=== PATIENT | male | born 1995 | race Caucasian/White ===

== ENCOUNTER 2019-06-12 12:41 | Inpatient (IN) | payer OTHER ==
[~2019-06-12] VITALS: Ht 177.8 cm; Wt 70.3 kg
--- NOTE | 2019-06-12 14:00 | NUR ---
[facility] 126 AT BEDSIDE AT THIS TIME.
--- NOTE | 2019-06-12 14:06 | NUR ---
According to the suicide assessment screen the patient scores low for suicide and does not require a 1:1 assessment. A suicide resource flyer was provided for the patient.
[2019-06-12 15:13] LABS: CALC OSMOLALITY 268 mosm/kg (275-300); CALCIUM 8.4 mg/dL (8.5-10.1); CHLORIDE - SERUM 97 mmol/L (98-107); GLUCOSE 133 mg/dL (74-106); POTASSIUM - SERUM 3.3 mmol/L (3.5-5.1); SODIUM 134 mmol/L (136-145); UREA NITROGEN 9 mg/dL (7-18); eGFR NON AFRICAN AMERICAN > 90 mL/min (90-120)
--- NOTE | 2019-06-12 15:17 | NUR ---
RETURNED FROM CT SCAN AT THIS TIME VIA STRETCHER.
[2019-06-12 15:19] LABS: ALBUMIN 2.9 g/dL (3.4-5.0); ALKALINE PHOSPHATASE 63 U/L (46-116); ALT (SGPT) 31 U/L (10-68); BILIRUBIN - TOTAL 0.86 mg/dL (0.2-1.3); HEMATOCRIT 31.7 % (42.0-54.0); HEMOGLOBIN 11.2 g/dL (13.5-17.5); MAGNESIUM - SERUM 2.2 mg/dL (1.8-2.4); MCH 30.6 pg (26.0-34.0); MCHC 35.3 g/dL (31.0-37.0); MCV 86.6 fL (80.0-100.0); MEAN PLATELET VOLUME 8.8 fL (7.4-10.4); PLATELET COUNT 319 10x3/uL (130-400); PROTEIN - SERUM 7.2 g/dL (6.4-8.2); RBC 3.66 10x6/uL (4.20-6.10); RDW 12.5 % (11.5-14.5); WBC 20.6 10x3/uL (4.8-10.8)
[2019-06-12 15:31] LABS: LYMPHOCYTES 14 % (15-50); NEUTROPHILS 78 % (40-80)
[2019-06-12 15:56] LABS: APPEARANCE CLEAR (CLEAR); BILIRUBIN NEGATIVE (NEGATIVE); COLOR YELLOW (YELLOW); GLUCOSE NEGATIVE (NEGATIVE); KETONE NEGATIVE (NEGATIVE); NITRITE NEGATIVE (NEGATIVE); PROTEIN NEGATIVE (NEGATIVE); SPECIFIC GRAVITY 1.015 (1.005-1.020)
[2019-06-12 16:01] LABS: UDS - AMPHET NEGATIVE QUAL (NEGATIVE); UDS - BARB NEGATIVE QUAL (NEGATIVE); UDS - BENZO NEGATIVE QUAL (NEGATIVE); UDS - COCAINE NEGATIVE QUAL (NEGATIVE); UDS - OPIATE NEGATIVE QUAL (NEGATIVE); UDS - PCP NEGATIVE QUAL (NEGATIVE); UDS - THC NEGATIVE QUAL (NEGATIVE)
[2019-06-12 16:52] LABS: CREATINE KINASE 608 UL (21-232)
[2019-06-12 16:59] LABS: CKMB 1.7 U/L (0.0-3.6)
[2019-06-12 17:09] LABS: PLATELET ESTIMATE NORMAL
[2019-06-12 18:12] LABS: APTT 38.2 SECONDS (22.8-39.4)
[2019-06-12 18:13] LABS: INR 1.19 (0.85-1.17); PROTIME 15.1 SECONDS (11.6-15.0)
[2019-06-12 18:27] VITALS: BP 116/74; BMI 22.2
[2019-06-12 20:00] VITALS: BP 120/55
[2019-06-13] VITALS: BP 122/60
[2019-06-13 04:00] VITALS: BP 118/60
[2019-06-13 07:13] LABS: BASOPHILS 0.1 % (0-2); EOSINOPHILS 0.4 % (0-7); HEMATOCRIT 28.1 % (42.0-54.0); HEMOGLOBIN 9.5 g/dL (13.5-17.5); IMMATURE GRANULOCYTES 0.4 % (0-5); LYMPHOCYTES 14.1 % (15-50); MCH 29.7 pg (26.0-34.0); MCHC 33.8 g/dL (31.0-37.0); MCV 87.8 fL (80.0-100.0); MEAN PLATELET VOLUME 8.4 fL (7.4-10.4); MONOCYTES 8.7 % (2-11); NEUTROPHILS 76.3 % (40-80); PLATELET COUNT 324 10x3/uL (130-400)
[2019-06-13 07:22] LABS: WBC 13.4 10x3/uL (4.8-10.8)
[2019-06-13 08:00] VITALS: BP 108/51
--- NOTE | 2019-06-13 08:00 | NUR ---
ALERT AND ORIENTED X4 WITH GENERALIZED ABRAISIONS AND BRUISING NOTED. ERYTHEMA AND WARMTH NOTED TO LLE WITH PERIPERAL PULSES NOTED AND 1+ EDEMA TO LLE. ENCOURAGED TO USE CALL LIGHT FOR ASSIST.
[2019-06-13 08:06] LABS: ALBUMIN 2.2 g/dL (3.4-5.0); ALKALINE PHOSPHATASE 46 U/L (46-116); BILIRUBIN - TOTAL 0.67 mg/dL (0.2-1.3); CALCIUM 7.5 mg/dL (8.5-10.1); CHLORIDE - SERUM 104 mmol/L (98-107); CREATININE - SERUM 0.9 mg/dL (0.6-1.3); GLUCOSE 100 mg/dL (74-106); MAGNESIUM - SERUM 2.1 mg/dL (1.8-2.4); POTASSIUM - SERUM 3.4 mmol/L (3.5-5.1); SODIUM 138 mmol/L (136-145); eGFR NON AFRICAN AMERICAN > 90 mL/min (90-120)
[2019-06-13 08:07] LABS: ALT (SGPT) 23 U/L (10-68); CALC OSMOLALITY 272 mosm/kg (275-300); UREA NITROGEN 5 mg/dL (7-18)
[2019-06-13 15:55] VITALS: BP 125/66
--- NOTE | 2019-06-13 19:41 | NUR ---
PATIENT RESTING IN BED ON PHONE. PATIENT DENIES NEEDS AT THIS TIME. BED IN LOWEST POSITION AND CALL LIGHT WITHIN REACH. ENCOURAGED THE PATIENT TO CALL IF HE HAS NEEDS. WILL CONTINUE TO MONITOR.
[2019-06-13 20:32] VITALS: BP 110/58
--- NOTE | 2019-06-13 22:15 | NUR ---
PATIENT SITTING UP IN BED LOOKING AT PHONE. PATIENT DENIES NEEDS AT THIS TIME.
--- NOTE | 2019-06-13 22:21 | NUR ---
BROUGHT PATIENT A SNACK PER HIS REQUEST. PATIENT DENIES OTHER NEEDS AT THIS TIME.
[2019-06-14 00:23] VITALS: BP 110/62
[2019-06-14 04:00] VITALS: BP 102/49
[2019-06-14 06:46] LABS: BASOPHILS 0.3 % (0-2); EOSINOPHILS 1.9 % (0-7); HEMATOCRIT 29.4 % (42.0-54.0); HEMOGLOBIN 9.5 g/dL (13.5-17.5); IMMATURE GRANULOCYTES 0.7 % (0-5); LYMPHOCYTES 17.1 % (15-50); MCH 29.1 pg (26.0-34.0); MCHC 32.3 g/dL (31.0-37.0); MEAN PLATELET VOLUME 8.4 fL (7.4-10.4); MONOCYTES 7.1 % (2-11); NEUTROPHILS 72.9 % (40-80); PLATELET COUNT 355 10x3/uL (130-400); RBC 3.27 10x6/uL (4.20-6.10); RDW 13.4 % (11.5-14.5); WBC 10.3 10x3/uL (4.8-10.8)
[2019-06-14 06:48] LABS: MCV 89.9 fL (80.0-100.0)
[2019-06-14 07:03] LABS: ALBUMIN 2.1 g/dL (3.4-5.0); ALKALINE PHOSPHATASE 50 U/L (46-116); ALT (SGPT) 21 U/L (10-68); BILIRUBIN - TOTAL 0.48 mg/dL (0.2-1.3); CALC OSMOLALITY 281 mosm/kg (275-300); CALCIUM 7.8 mg/dL (8.5-10.1); CARBON DIOXIDE 29.8 mmol/L (21.0-32.0); CHLORIDE - SERUM 110 mmol/L (98-107); CREATININE - SERUM 0.9 mg/dL (0.6-1.3); GLUCOSE 105 mg/dL (74-106); MAGNESIUM - SERUM 2.2 mg/dL (1.8-2.4); POTASSIUM - SERUM 3.9 mmol/L (3.5-5.1); PROTEIN - SERUM 6.2 g/dL (6.4-8.2); SODIUM 143 mmol/L (136-145); UREA NITROGEN 5 mg/dL (7-18); eGFR NON AFRICAN AMERICAN > 90 mL/min (90-120)
[2019-06-14 07:50] VITALS: BP 120/62
--- NOTE | 2019-06-14 09:42 | NUR ---
PT RESTING COMFORTABLY IN BED, COVERED WITH BLANKET FROM HEAD TO TOES. ASKED PT IF HE WANTED TO TAKE A SHOWER OR WASH UP AND PT STATED "NO". THEN ASKED PT IF HE WANTED THE MISSION SUPPORT SPECIALIST TO CHANGE HIS BED AND PT ALSO STATED "NO". PT DID NOT UNCOVER TO TALK TO NURSE JUST ANSWERED WITH NO FOR ALL QUESTIONS. CALL LIGHT IN REACH, BEDSIDE RAILS X2, NAD NOTED, WILL CONTINUE TO MONITOR.
--- NOTE | 2019-06-14 09:50 | NUR ---
PER INFECTIOUS CONTROL NURSE, PT CAN COME OFF ISOLATION.
[2019-06-14 10:12] VITALS: Ht 177.8 cm; Wt 70.3 kg
[2019-06-14 11:29] VITALS: BP 106/58
[2019-06-14 16:29] VITALS: BP 115/73
--- NOTE | 2019-06-14 17:19 | NUR ---
CALLED PHARMACY AND INFORMED TECH THAT I NEED VANCOMYCIN FOR PT.
--- NOTE | 2019-06-14 17:32 | NUR ---
PT WAS ABLE TO VERBALIZED THAT HE NEEDED SOMETHING FOR PAIN AND THAT HE WANTS TO TAKE A SHOWER. INFORMED HIM THAT ONCE HIS ANTIBIOTIC IS DONE INFUSING THAT I WILL DISCONNECT HIM SO HE CAN GET IN THE SHOWER.
--- NOTE | 2019-06-14 19:25 | NUR ---
PATIENT RESTING IN BED WITH EYES CLOSED AND NO S/S OF DISTRESS. BED IN LOWEST POSITION AND CALL LIGHT WITHIN REACH. WILL CONTINUE TO MONITOR.
[2019-06-14 19:36] VITALS: BP 112/62
--- NOTE | 2019-06-14 19:51 | MORECARE ---
CASE MANAGEMENT DISCHARGE SUMMARY PATIENT: RAMON VERAS UNIT: [id number] ADM DATE: 06/12/19 AGE: 24 : 93 SEX: M ROOM/BED: D.1210 AUTHOR: JOANNE MARIE PHYSICIAN: REFERRING PHYSICIAN: TRIPP SANCHEZ MD DATE OF SERVICE: 06/14/19 Discharge Plan Patient Name: RAMON VERAS Facility: [facility]:[place] : 1995 Planned Disposition: Other Type of Facility Anticipated Discharge Date: Discharge Date: Expected LOS: Initial Reviewer: [email or web address] Initial Review Date: 06/12/2019 Generated: 06/14/19 8:51 pm Patient Name: RAMON VERAS Page [id number] at 1950 All edits/amendments must be made on the electronic document DICTATION DATE: 06/14/191950 COURT BAILIFF: ERIKA 06/14/191950 RPT#: [id number] DC DATE: STATUS: ADM IN [facility] [address] [place] [address] END OF REPORT
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
--- NOTE | 2019-06-14 21:18 | NUR ---
AFSHAN ARRIVED ON UNIT AND ASKED WHAT WAS GOING ON. I TOLD THE OFFICERS WHAT I KNOW ABOUT THE SITUATION. THE MOTOR OPERATOR ALSO SPOKE WITH THE POLICE OFFICERS.
--- NOTE | 2019-06-14 21:20 | NUR ---
[place] [employer] AT BEDSIDE TALKING TO PATIENT
--- NOTE | 2019-06-15 00:42 | NUR ---
PATIENT IN SHOWER
[2019-06-15 00:43] VITALS: BP 116/82
--- NOTE | 2019-06-15 01:35 | NUR ---
CLEANED PATIENT'S WOUND TO LEFT LEG AND APPLIED DRESSING.
[2019-06-15 05:50] VITALS: BP 122/74
[2019-06-15 06:11] LABS: BASOPHILS 0.4 % (0-2); IMMATURE GRANULOCYTES 0.9 % (0-5); LYMPHOCYTES 25.9 % (15-50); MCH 29.9 pg (26.0-34.0); MCHC 33.3 g/dL (31.0-37.0); MCV 89.8 fL (80.0-100.0); MEAN PLATELET VOLUME 8.3 fL (7.4-10.4); MONOCYTES 7.8 % (2-11); PLATELET COUNT 395 10x3/uL (130-400); RBC 3.34 10x6/uL (4.20-6.10); RDW 13.4 % (11.5-14.5)
[2019-06-15 06:34] LABS: ALBUMIN 2.2 g/dL (3.4-5.0); ALKALINE PHOSPHATASE 48 U/L (46-116); ALT (SGPT) 24 U/L (10-68); CALC OSMOLALITY 278 mosm/kg (275-300); CALCIUM 7.8 mg/dL (8.5-10.1); CHLORIDE - SERUM 108 mmol/L (98-107); CREATININE - SERUM 0.8 mg/dL (0.6-1.3); GLUCOSE 88 mg/dL (74-106); POTASSIUM - SERUM 4.4 mmol/L (3.5-5.1); PROTEIN - SERUM 6.1 g/dL (6.4-8.2); SODIUM 142 mmol/L (136-145); UREA NITROGEN 5 mg/dL (7-18); eGFR NON AFRICAN AMERICAN > 90 mL/min (90-120)
[2019-06-15 06:41] LABS: WBC 7.7 10x3/uL (4.8-10.8)
[2019-06-15 08:23] VITALS: BP 112/64
--- NOTE | 2019-06-15 08:44 | NUR ---
CALLED PHARMACY AND SPOKE WITH JOSEPH, INFORMED HER THAT I NEED VANC FOR PT DUE AT 0800.
--- NOTE | 2019-06-15 10:23 | NUR ---
LT FA IV INFILTRATED. D/C IV WITH CATHETER TIP INTACT. NEW 20G IV STARTED TO RT WRIST X1 STICK. PT DENIES ANY NEEDS AT THIS TIME. CALL LIGHT IN REACH, NAD NOTED, WILL CONTINUE TO MONITOR.
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
[2019-06-15] MEDS ORDERED: DOXYCYCLINE HY100 M2 PO (11:52)
[2019-06-15] MEDS ORDERED: PROTONIX40 MG PO (11:53)
[2019-06-15] MEDS ORDERED: EFFEXOR50 MG PO (11:53)
[2019-06-15] MEDS ORDERED: RISPERDAL1 MG PO (11:53)
[2019-06-15 12:00] VITALS: BP 126/78
--- NOTE | 2019-06-15 12:02 | NUR ---
PT WANTS TO USE [facility] FOR HIS PHARMACY.
--- NOTE | 2019-06-15 13:10 | NUR ---
PRESCRIPTIONS CALLED IN TO [facility] SPOKE TO THE PHARMACIST JOSHUA. PT STATED THAT HE HAS SOMEONE WHO WILL PICK HIM UP ONCE DISCHARGE.
--- NOTE | 2019-06-15 13:53 | NUR ---
PROVIDED VERBAL AND WRITTEN DISCHARGE TEACHING. PT VERBALIZED UNDERSTANDING REGARDING TEACHING. PT HAD TOLD THIS NURSE THAT HE HAD A RIDE, NOW SAYING THAT HE DOES NOT HAVE RIDE. CASE MANGER TO TALK TO PT REGARDING TRANSPORTATION.
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
--- NOTE | 2019-06-15 15:43 | NUR ---
PT LEFT UNIT VIA AMBULATORY, WITH ALL BELONGINGS, ACCOMPANIED BY NEON MOLDER. NAD NOTED.
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
== END 2019-06-15 15:44 | disposition home or self-care (01) | DRG 602 ==
LOC: D.ER 12:41 → D.M3 16:11 → D.ER 17:27 → D.M3 06-15 15:44
PROVIDERS: Emergency Medicine; Internal Medicine Nephrology; ADMIT Family Medicine; ATTEND Family Medicine
DX: L03.116 Cellulitis of left lower limb (principal); S12.8XXA Fracture of other parts of neck, initial encounter; S36.13XA Injury of bile duct, initial encounter; R47.01 Aphasia; N17.9 Acute kidney failure, unspecified; E87.1 Hypo-osmolality and hyponatremia; S05.42XA Penetrating wound of orbit with or without foreign body, left eye, initial encounter; Y09 Assault by unspecified means; S02.2XXA Fracture of nasal bones, initial encounter for closed fracture; D64.9 Anemia, unspecified; E87.6 Hypokalemia; H11.30 Conjunctival hemorrhage, unspecified eye